=== PATIENT | male | born 1970 | race Caucasian/White ===

== ENCOUNTER 2021-04-18 08:26 | Day surgery (SDC) | payer OTHER, SELFPAY ==
[2021-04-11 16:05] VITALS: BMI 29.1
[2021-04-18 08:50] VITALS: BP 120/67; PULSE 79; RESP 16; TEMP 37.2; O2SAT 97
--- NOTE | 2021-04-18 09:06 | HO.ANESPROP2 ---
HPI - Anesthesia Eval Consult details Narrative: 50 yo male patient for colonoscopy PMFSH Active Problems Active Problems: On suboxone Family History Family history of problems with anesthesia: No Surgical History Surgical History (Updated 04/11/21 @ 16:04 by Lynne Salazar RN) Hx of plastic surgery History of Problems with Anesthesia: No Social History Social History Patient Tobacco Use Status: Never used Tobacco Second Hand Smoke Exposure: No Use of substances other than those prescribed or required for medical reasons: No Are you DNR?: No Advance Directives: No Advance Directives Information Provided: Yes Advance Directives on File: No Meds Allergies Allergy/AdvReac Type Severity Reaction Status Date / Time No Known Allergies Allergy Verified 04/18/21 09:13 Active Medications: Current Medications Lactated Ringer's (Lr) 1,000 mls @ 100 mls/hr IVCONT .Q10H [facility] Home Medications Medication Instructions Recorded Confirmed Last Taken Type buprenorphine 2 mg-naloxone 0.5 mg 2 tab SUBLINGUAL DAILY 04/11/21 04/11/21 04/18/21 History sublingual tablet Exam Exam Date and Time: April 18, 2021 0906 Height,Weight and Vital Signs: Height 5 ft 10 in Weight 92.079 kg Last Vital Signs Temp 98.9 F 04/18/21 08:50 Pulse 79 04/18/21 08:50 Resp 16 04/18/21 08:50 BP 120/67 04/18/21 08:50 Pulse Ox 97 04/18/21 08:50 Airway Mallampati Class: II TM Dist: >3cm Neck ROM: Full Loose/Missing/Broken Teeth: No Heart: RRR Lungs: CTAB Assessment and Plan Assessment Anesthesia Assessment: Anesthesia Plan Discussed and Chart Reviewed Final Anesthetic Review Family History of Problems with Anesthesia: No History of Problems with Anesthesia: No NPO: Yes ASA Class: II Final Preanesthetic Review: No Changes in Pt Med Stat, Meds/Allgs Chart Reviewed, Consent Obtained/Reviewed and Anes Risks/Benef Reviewed Patient Risk: Low Procedure Risk: Low Assessment/Block/Sedation in SS: Assess/Block/Sedation-SS Anesthetic Plan Anesthetic Plan: MAC: Disposition: Standard PACU
[2021-04-18] MEDS: Lactated Ringers 1,000 ML 100 ML IVCONT (09:13)
--- NOTE | 2021-04-18 09:30 | MHC.SHP ---
Pre-Procedural Eval Section A Date of Service: 04/18/21 The patient is an INPATIENT: No Changes since office visit: No Cold of Flu in the past 2 weeks, No New Medical Problems, No Changes in Medication and No Patient answered all questions The History & Physical has been completed within 30 days and I have reviewed it.: Yes Section B Chief Complaint: fecal abnormalities Allergies: Allergies Allergy/AdvReac Type Severity Reaction Status Date / Time No Known Allergies Allergy Verified 04/18/21 09:13 Plan I have reviewed the history and physical and performed a pertinent physical examination on my patient. No changes have occurred unless specified.
[2021-04-18 10:04] VITALS: BP 97/42; PULSE 56; RESP 16; TEMP 36.6; O2SAT 98
--- NOTE | 2021-04-18 10:04 | PM.OP ---
Brief Operative Note Date of Service: 04/18/21 Pre-op diagnosis: abnormal findings in stool Post-op diagnosis: same Procedure: colonoscopy Surgeon: Satnam Vieyra Anesthesia: MAC Was an Shale [employer] Operator Helper used for this Procedure?: No Estimated blood loss (mL): 0 Pathology: none sent Disposition: PACU
[2021-04-18 10:20] VITALS: BP 125/72; PULSE 65; RESP 16; TEMP 36.6; O2SAT 98
--- NOTE | 2021-04-18 20:28 | OP_ITS ---
SURGEON: Satnam Vieyra MD INDICATIONS: Abnormal findings in stool. PREOPERATIVE DIAGNOSIS: POSTOPERATIVE DIAGNOSIS: PROCEDURE PERFORMED: Colonoscopy to the terminal ileum. ESTIMATED BLOOD LOSS: COMPLICATIONS: ANESTHESIA: Monitored anesthesia care. ASSISTANTS: SPECIMENS: DESCRIPTION OF PROCEDURE: History and physical performed. The risks and benefits of the procedure were explained to the patient. Informed consent was obtained. The patient was placed in left lateral decubitus position. A digital rectal exam was performed and was found to be normal. The Olympus pediatric video colonoscope was introduced in the rectum and advanced to the cecum without difficulty. The cecum was identified by transillumination, palpation, and identification of the ileocecal valve. Examination was performed. The scope was removed. He tolerated the procedure well, was transferred to the recovery room in stable condition. FINDINGS: The terminal ileum was examined and appeared normal. The visualized colonic mucosa was normal. The quality of the prep was good. No polyps were identified. There was mild sigmoid diverticulosis. Retroflexed examination showed very small internal hemorrhoids. IMPRESSION: Normal colonoscopy. RECOMMENDATIONS: 1. Follow up as needed. 2. Repeat colonoscopy is recommended in 10 years for average risk individuals. MD MICHAEL Lopez/WILLIAM / [id number]
== END 2021-04-18 10:41 | disposition home or self-care (01) ==
PROVIDERS: PCP Internal Medicine; Visit Provider Internal Medicine Gastroenterology
PROC: 0DJD8ZZ Inspection of Lower Intestinal Tract, Via Natural or Artificial Opening Endoscopic (ICD-10-PCS; CPT 45378; principal; 2021-04-18 09:40)
DX: R19.5 Other fecal abnormalities (principal); Z83.71 Family history of colonic polyps; K57.30 Diverticulosis of large intestine without perforation or abscess without bleeding; K64.8 Other hemorrhoids; F11.20 Opioid dependence, uncomplicated
CPT/HCPCS: 45378